=== PATIENT | female | born 1980 | race Caucasian/White ===

== ENCOUNTER 2018-05-21 19:32 | Observation (INO) | payer OTHER ==
[~2018-05-21] VITALS: Ht 170.2 cm; Wt 70.3 kg
[2018-05-21] MEDS ORDERED: PREN1TAB26 PO (20:07)
[2018-05-21 20:23] VITALS: BP 95/50
[2018-05-22] MEDS ORDERED: PRENATAL VIT PO (02:01)
== END 2018-05-21 22:50 | disposition home or self-care (01) ==
LOC: 4S 19:32
PROVIDERS: ADMIT Specialist; ATTEND Specialist
DX: O62.9 Abnormality of forces of labor, unspecified (principal); O26.893 Other specified pregnancy related conditions, third trimester; R10.9 Unspecified abdominal pain; M54.9 Dorsalgia, unspecified; Z3A.38 38 weeks gestation of pregnancy
CPT/HCPCS: 59025

== ENCOUNTER 2018-05-22 01:03 | Inpatient (IN) | payer OTHER ==
[~2018-05-22] VITALS: Ht 170.2 cm; Wt 70.3 kg
[~2018-05-22 01:03] MED LIST: PREN1TAB26 PO
[2018-05-22] MEDS ORDERED: RINGERS SOLUTION,LACTATED 1,000 ML IV PRN (01:06)
[2018-05-22] MEDS ORDERED: OXYTOCIN 30 UNITS/LACT RINGERS 500 ML IV ONE ×2 (01:06→07:34)
[2018-05-22] MEDS ORDERED: RINGERS SOLUTION,LACTATED 1,000 ML IV ONE ×2 (01:12)
[2018-05-22] MEDS ORDERED: METOCLOPRAMIDE HCL 5 MG/ML 2 ML VIAL IVP PRN (01:15)
[2018-05-22] MEDS ORDERED: CITRIC ACID/SODIUM CITRATE 30 ML SOLUTION UDCUP PO PRN (01:15)
[2018-05-22 01:56] VITALS: BP 99/55
[2018-05-22] MEDS ORDERED: PRENATAL VIT PO (02:01)
[2018-05-22] MEDS: RINGERS SOLUTION,LACTATED 1,000 ML IV SCH ×3 (02:13→03:38)
[2018-05-22] MEDS: FentaNYL CITRATE-PF 100 MCG/2 ML VIAL IVP PRN ×2 (02:24→02:34)
[2018-05-22] MEDS ORDERED: ROPIVACAINE HCL/PF 0.2% 100 ML ED ONE (02:59)
[2018-05-22] MEDS ORDERED: BUPIVACAINE HCL/PF 0.25% 10 ML VIAL ONE (02:59)
[2018-05-22] MEDS ORDERED: LIDOCAINE HCL/PF 2% 5 ML VIAL ONE (02:59)
[2018-05-22 03:19] LABS: BASOPHILS % (AUTO) 0.4 % (0.0-2.0); EOSINOPHILS % (AUTO) 1.2 % (1.0-6.0); HEMOGLOBIN 10.5 g/dL (12.0-16.0); LYMPHOCYTES # (AUTO) 2.4 K/uL (1.0-4.8); LYMPHOCYTES % (AUTO) 18.3 % (22.0-44.0); MEAN CORPUSCULAR HEMOGLOBIN 30.5 pg (26.0-34.0); MEAN CORPUSCULAR HGB CONC 34.9 G/dL (31.0-37.0); MEAN CORPUSCULAR VOLUME 87 fL (80-100); MONOCYTES # (AUTO) 1.3 K/uL (0.1-1.0); MONOCYTES % (AUTO) 10.2 % (2.0-9.0); NEUTROPHILS # (AUTO) 9.1 K/uL (1.8-7.7); NEUTROPHILS % (AUTO) 69.9 % (40.0-70.0); PLATELET COUNT (AUTO) 124 K/uL (150-450); RED BLOOD CELL COUNT(AUTO) 3.44 MIL/uL (4.00-5.20); RED CELL DISTRIBUTION WIDTH 13.8 % (11.5-14.5)
[2018-05-22] MEDS ORDERED: ROPIVACAINE HCL/PF 0.2% 100 ML ED PRN (03:37)
[2018-05-22] MEDS ORDERED: DiphenhydrAMINE HCL 50 MG/ML VIAL IVP PRN (03:45)
[2018-05-22] MEDS ORDERED: ONDANSETRON HCL 4 MG/2 ML VIAL IVP PRN (03:45)
[2018-05-22] MEDS ORDERED: NALBUPHINE HCL 10 MG/ML VIAL IVP PRN ×2 (03:45)
[2018-05-22] MEDS ORDERED: OXYTOCIN 30 UNITS/LACT RINGERS 500 ML IV PRN (04:14)
[2018-05-22] MEDS ORDERED: GLYCERIN/WITCH HAZEL LEAF 40 PADS JAR TP PRN (07:45)
[2018-05-22] MEDS ORDERED: OxyCODONE HCL/ACETAMINOPHEN 5-325 MG TABLET PO PRN ×2 (07:45)
[2018-05-22] MEDS ORDERED: LANOLIN 7 GM OINTMENT TP PRN (07:45)
[2018-05-22] MEDS ORDERED: MAGNESIUM HYDROXIDE SUSPENSION 30 ML UDCUP PO PRN (07:45)
[2018-05-22] MEDS ORDERED: OXYGEN THERAPY IH SCH (08:00)
[2018-05-22] MEDS: IBUPROFEN 800 MG TABLET PO PRN ×2 (10:58→21:32)
[2018-05-23 06:32] LABS: BASOPHILS % (AUTO) 0.5 % (0.0-2.0); EOSINOPHILS % (AUTO) 1.6 % (1.0-6.0); HEMATOCRIT 27.8 % (36-46); HEMOGLOBIN 9.6 g/dL (12.0-16.0); LYMPHOCYTES % (AUTO) 25.1 % (22.0-44.0); MEAN CORPUSCULAR HEMOGLOBIN 30.3 pg (26.0-34.0); MEAN CORPUSCULAR HGB CONC 34.6 G/dL (31.0-37.0); MEAN CORPUSCULAR VOLUME 88 fL (80-100); MONOCYTES # (AUTO) 1.1 K/uL (0.1-1.0); MONOCYTES % (AUTO) 9.4 % (2.0-9.0); NEUTROPHILS # (AUTO) 7.5 K/uL (1.8-7.7); NEUTROPHILS % (AUTO) 63.4 % (40.0-70.0); PLATELET COUNT (AUTO)-OB 119 K/uL (150-450); RED BLOOD CELL COUNT(AUTO) 3.18 MIL/uL (4.00-5.20); RED CELL DISTRIBUTION WIDTH 14.3 % (11.5-14.5)
[2018-05-23] MEDS ORDERED: IBUP-2070 PO (10:18)
[2018-05-23] MEDS ORDERED: DSS100 PO (10:19)
[2018-05-23] MEDS ORDERED: FERR-89 PO (10:20)
== END 2018-05-23 11:05 | disposition home or self-care (01) | DRG 775 ==
LOC: 4S 01:03 → PREOBSVTOIN 06-15 01:12
PROVIDERS: ADMIT Specialist; ATTEND Specialist
PROC: 10E0XZZ Delivery of Products of Conception, External Approach (ICD-10-PCS; principal; 2018-05-22)
PROC: 0KQM0ZZ Repair Perineum Muscle, Open Approach (ICD-10-PCS; 2018-05-22)
PROC: 3E0R3BZ Introduction of Anesthetic Agent into Spinal Canal, Percutaneous Approach (ICD-10-PCS; 2018-05-22)
PROC: 00HU33Z Insertion of Infusion Device into Spinal Canal, Percutaneous Approach (ICD-10-PCS; 2018-05-22)
DX: O70.1 Second degree perineal laceration during delivery (principal); Z37.0 Single live birth; Z3A.38 38 weeks gestation of pregnancy; O09.513 Supervision of elderly primigravida, third trimester
CPT/HCPCS: 86850; 86900; 86901; J2590; J2795; J3010; J3490; J7120